=== PATIENT | male | born 1995 | race Caucasian/White ===

== ENCOUNTER 2022-08-03 16:30 | Emergency (ER) | payer SELFPAY ==
[2022-08-03 16:45] VITALS: BP 149/81; PULSE 94; RESP 16; TEMP 38; O2SAT 99
--- NOTE | 2022-08-03 17:59 | ED.GENADULT ---
HPI - General Adult General Chief complaint: Upper Respiratory Infection Stated complaint: cough,sinus pressure, high temp Source: patient Mode of arrival: ambulatory Limitations: no limitations History of Present Illness HPI narrative: PATIENT PRESENTS FOR EVALUATION OF SICK SYMPTOMS FOR LAST WEEK. SYMPTOMS INCLUDE COUGH AND HEADACHE. HE DEVELOPED OF FEVER EARLIER TODAY WHICH PROMPTED HIM TO COME IN HERE TODAY. HE HAS HAD SOME MILD SHORTNESS OF BREATH OCCASIONALLY BUT NOTHING SIGNIFICANT. HE DENIES ANY NAUSEA OR VOMITING. HE DID HAVE SOME DIARRHEA. HIS GIRLFRIEND AND CHILD HAS SIMILAR SYMPTOMS. HE STATES HE IS NOT SURE WHETHER THEY RECEIVED A FORMAL MEDICAL DIAGNOSIS. HE SMOKED MARIJUANA UNTIL THREE WEEKS AGO. HE DOES NOT SMOKE CIGARETTES. HE TOOK MUCINEX BUT IS UNSURE WHETHER THAT MADE A CONSIDERABLE DIFFERENCE IN HIS SYMPTOMS. NO ADDITIONAL COMPLAINTS OR CONCERNS. Related Data Allergies Allergy/AdvReac Type Severity Reaction Status Date / Time No Known Allergies Allergy Unverified 06/26/16 04:03 Review of Systems Review of Systems: CONSTITUTIONAL: REPORTS FEVER. DENIES CHILLS, OR SWEATS. EYES: DENIES VISUAL CHANGES, REDNESS, OR DISCHARGE. ENT: DENIES RHINORRHEA, CONGESTION, SORE THROAT, OR OTALGIA. CARDIOVASCULAR: DENIES CHEST PAIN, PALPITATIONS, OR EDEMA. RESPIRATORY: REPORTS COUGH AND MILD SHORTNESS OF BREATH. GASTROINTESTINAL: DENIES ABDOMINAL PAIN, NAUSEA, VOMITING, OR DIARRHEA. GENITOURINARY: DENIES DYSURIA OR HEMATURIA. SKIN: DENIES RASH OR ITCHING. MUSCULOSKELETAL: DENIES BACK PAIN, JOINT PAIN, OR MYALGIA. NEUROLOGIC: REPORTS HEADACHE. DENIES NUMBNESS, DIZZINESS, OR WEAKNESS. PSYCHIATRIC: DENIES ANXIETY OR DEPRESSION. [facility] Past Medical History Medical History No pertinent past medical history Surgical History Surgical History (Updated 08/03/22 @ 18:03 by GRANT Pope, FAHAD) No pertinent past surgical history Family History Family History Mother Family history non-contributory Social History Social History Smoking status: Never smoker Substance use: former Substance use type: marijuana Gender identity (if verbalized by the patient): Male Sexual Orientation (if Verbalized by the Patient): Straight or Heterosexual Spiritual care concerns: No Exam Narrative: GENERAL: APPEARS ACUTELY ILL BUT NONTOXIC. HEAD: NORMOCEPHALIC, ATRAUMATIC. EYES: PERRLA AND EOMI. ENT: NARES CLEAR, NO RHINORRHEA OR EPISTAXIS. MUCOUS MEMBRANES MOIST. OROPHARYNX WITHOUT TONSILLAR HYPERTROPHY EXUDATE OR OTHER LESIONS. BILATERAL TMS PEARLY PLUMMER NONBULGING NECK: SUPPLE. NO ADENOPATHY OR MASSES. NO CAROTID BRUITS OR JVD CHEST: COUGH NOTED ON EXAM. CLEAR TO AUSCULTATION. NO RESPIRATORY DISTRESS. NO WHEEZES RALES OR RHONCHI HEART: REGULAR RATE AND RHYTHM. NO MURMUR HEARD. NORMAL PERIPHERAL PULSES. ABDOMEN: SOFT, NONTENDER, NONDISTENDED, NORMAL ACTIVE BOWEL SOUNDS. EXTREMITIES: NORMAL RANGE OF MOTION. NO EDEMA. SKIN: WARM, DRY, NO RASH. NEURO: NO FOCAL DEFICITS. ALERT AND ORIENTED X3. PSYCH: NORMAL MOOD AND AFFECT. Course Course Emergency Course: THIS IS A 27-YEAR-OLD MALE WHO PRESENTED FOR EVALUATION OF SICK SYMPTOMS. INFLUENZA IS POSITIVE. WILL TREAT WITH TAMIFLU. INCREASE HYDRATION. [id number] AGENTS FOR SYMPTOM MANAGEMENT. FOLLOW UP WITH PRIMARY PROVIDER. INSTRUCTED ON HAND HYGIENE. GO TO THE ER FOR DIFFICULTY BREATHING. PATIENT IN AGREEMENT PLAN OF CARE. Level of Care: Express Care Visit Vital Signs Vital signs: Vital Signs Temperature 38.0 C H 08/03/22 16:45 Pulse Rate 94 08/03/22 16:45 Respiratory Rate 16 08/03/22 16:45 Blood Pressure 149/81 H 08/03/22 16:45 Pulse Oximetry 99 08/03/22 16:45 Oxygen Delivery Room Air 08/03/22 16:45 Temperature 38.0 C H 08/03/22 16:45 P
== END 2022-08-03 18:01 | disposition home or self-care (01) ==
PROVIDERS: Emergency Provider Nurse Practitioner
DX: J10.1 Influenza due to other identified influenza virus with other respiratory manifestations (principal)
CPT/HCPCS: 87804; 99203; G0463

== ENCOUNTER 2025-01-31 19:03 | Emergency (ER) | payer OTHER, SELFPAY ==
--- NOTE | ~2025-01-31 | US_ITS ---
EXAM: ABDOMEN ULTRASOUND HISTORY: RUQ pain+murphys COMPARISON: None FINDINGS: LIVER: The liver is increased in echogenicity and size measuring 20 cm in longitudinal dimension. The portal vein is patent, demonstrating hepatopedal flow. GALLBLADDER: No stones are identified within the gallbladder, which is otherwise unremarkable. No sonographic Cleary sign is elicited. No gallbladder wall thickening or pericholecystic fluid. BILE DUCTS: Common bile duct measures 2.6mm. PANCREAS: Limited evaluation of the pancreas secondary to overlying bowel gas IMPRESSION: Limited evaluation of the pancreas secondary to overlying bowel gas. Fatty infiltration of an enlarged liver. No additional abnormality, as detailed above. Reviewed, dictated and finalized at location A.
--- NOTE | ~2025-01-31 | XR_ITS ---
CHEST RADIOGRAPH CLINICAL HISTORY: right side pain w/ breathing . COMPARISON: None available TECHNIQUE: Single portable view of the chest. FINDINGS The cardiomediastinal silhouette is unremarkable. The lungs are clear. Visualized osseous structures and soft tissues are unremarkable. IMPRESSION: No focal infiltrate or effusion. Reviewed, dictated and finalized at location A.
[2025-01-31 19:14] VITALS: BP 153/87; PULSE 92; RESP 15; TEMP 36.8; O2SAT 97
--- NOTE | 2025-01-31 19:23 | ED.ABDPAIN ---
HPI - Abdominal Pain General Chief Complaint: Abdominal Pain Stated Complaint: right flank pain Time Seen by Provider: 01/31/25 19:15 History of Present Illness HPI narrative: 29-year-old otherwise healthy male presenting to the emergency department with 1 day of right upper quadrant pain worse with deep breathing. Patient states that he did not injure himself for have any recent illnesses. He denies any coughing, sneezing, Raynaud's, nausea, vomiting, diarrhea constipation. Was otherwise in his normal state of health but woke up today with some right upper quadrant pain rating 2-3 in intensity. He states that got progressively worse throughout the day and when he bent over or while he was taking deep breaths it worsened. Still has his gallbladder, no history of gallstones, kidney stones or significant alcohol intake. He was otherwise in his normal state of health. Related Data Allergies Allergy/AdvReac Type Severity Reaction Status Date / Time No Known Allergies Allergy Unverified 01/31/25 19:22 Review of Systems Review of Systems: As reviewed above in HPI [facility] Past Medical History Medical History No pertinent past medical history Surgical History Surgical History No pertinent past surgical history Family History Family History Mother Family history non-contributory Social History Social History Smoking status: Never smoker Substance use: former Substance use type: marijuana Living arrangements: with family Gender identity (if verbalized by the patient): Male Sexual Orientation (if Verbalized by the Patient): Straight or Heterosexual Spiritual care concerns: No Exam Narrative: GENERAL: [Well-appearing, well-nourished, and in no acute distress.] HEAD: [Normocephalic, atraumatic.] EYES: [PERRLA and EOMI.] ENT: Nares clear, no rhinorrhea or epistaxis. Mucous membranes moist. NECK: Supple. CHEST: [Clear to auscultation. No respiratory distress.] HEART: [Regular rate and rhythm]. No murmur heard. [Normal peripheral pulses.] ABDOMEN: [Soft, nondistended], tender to palpation the right upper quadrant with a positive Cleary sign but no overlying skin changes. No CVA tenderness, [No rigidity or guarding] EXTREMITIES: Normal range of motion. [No edema.] SKIN: Warm, dry, no rash. NEURO: [No focal deficits]. Alert and oriented [x3.] PSYCH: [Normal mood and affect.] Course Vital Signs Vital signs: Vital Signs Temperature 36.8 C 01/31/25 19:14 Pulse Rate 92 01/31/25 19:14 Respiratory Rate 15 01/31/25 19:14 Blood Pressure 153/87 H 01/31/25 19:14 Pulse Oximetry 97 01/31/25 19:14 Oxygen Delivery Room Air 01/31/25 19:14 Temperature 36.8 C 01/31/25 19:14 Pulse Rate 95 01/31/25 19:39 Respiratory Rate 15 01/31/25 19:39 Blood Pressure 130/91 H 01/31/25 19:39 Pulse Oximetry 97 01/31/25 19:39 Oxygen Delivery Room Air 01/31/25 19:14 MDM - Abdominal Pain MDM Narrative Medical decision making narrative: 29-year-old male presenting to the emergency department with 1 day of right upper quadrant pain progressively worsened throughout the day. Positive Cleary sign examination but otherwise reassuring exam in the abdomen with no signs of peritonitis, rigidity or guarding. He is afebrile, vital signs show some mild hypertension but no other vital concerns. No urinary pain or dysuria, no nausea, vomiting, diarrhea. No upper respiratory complaints or difficulty in breathing. Differential diagnosis includes musculoskeletal pain, gallstones, gallbladder colic, cholecystitis, choledocholithiasis, pancreatitis, less likely renal pathology or hepatitis. Low suspicion intra-abdominal infection otherwise. Ultrasound of right upper quadrant was ordered as well as CBC, CMP, urinalysis and lipase level. Chest x-ray is ordered to look for potential intrathoracic process such as pneumonia, pleural effusion or pneumothorax less likely. Workup shows a slight leukocytosis of 12.8 but nonspecific. No anemia or platelet concerns. Electrolytes are normal, normal renal and hepatic function panel. Normal lipase. Urinalysis without any signs of infection or blood. Chest x-ray without any infiltrates or effusion. Ultrasound shows fatty liver but no abnormalities such as gallstones, bladder wall thickening, sonographic Cleary sign or any pericholecystic fluid. Patient remains hemodynamically stable given his unremarkable workup can be safely discharged home with close primary care provider follow-up and return precautions. Medical Records Attestation: I reviewed the patient's medical records. Lab Data Attestation: I reviewed the patient's lab results. 01/31/25 19:18 01/31/25 19:18 Labs: Lab Results 01/31/25 01/31/25 Range/Units 19:18 20:44 WBC 12.8 H (4.5-10.0) K/mm3 RBC 5.33 (4.6-6.20) M/mm3 Hgb 15.4 (14.0-18.0) g/dL Hct 46.2 (42.0-52.0) % MCV 86.7 (80-100) fl MCH 28.9 (26-34) pg MCHC 33.3 (32-36) g/dl RDW 12.9 (11.5-14.5) % Plt Count 328 (150-375) k/mm3 MPV 9.8 (7.4-10.4) fl Immature Gran % (Auto) 0.5 (0-0.5) % Neut % (Auto) 67.4 (45.5-73.1) % Lymph % (Auto) 25.1 (18.3-44.2) % [place] % (Auto) 5.6 (2.6-8.5) % Eos % (Auto) 0.6 (0-4.4) % Baso % (Auto) 0.8 (0.2-1.2) % Lymph # (Auto) 3.21 H (0.9-3.2) K/mm3 [place] # (Auto) 0.7 H (0.1-0.6) K/mm3 Eos # (Auto) 0.1 (0-0.3) K/mm3 Baso # (Auto) 0.1 (0.0-0.1) K/mm3 Abs Immat Gran (auto) 0.07 H (0.00-0.031) K/mm3 Absolute Neuts (auto) 8.6 H (1.3-6.7) K/mm3 Absolute Nucleated RBC 0.000 (0.0-0.012) K/mm3 Nucleated RBC % 0.0 (0.0-0.2) % Sodium 141 (137-145) mmol/L Potassium 4.4 (3.4-5.0) mmol/L Chloride 106 (98-107) mmol/L Carbon Dioxide 25 (22-30) mmol/L Anion Gap 10 (4-12) mmol/L BUN 14 (9-20) mg/dL Creatinine 0.85 (0.7-1.3) mg/dL Estim Creat Clear Calc 142 ml/min Estimated GFR > 60 (59 - ) Glucose 82 (65-110) mg/dL Calcium 9.7 (8.4-10.2) mg/dL Total Bilirubin 0.4 (0.2-1.3) mg/dL AST 26 (17-59) U/L ALT 27 (6-50) U/L Alkaline Phosphatase 69 (38-126) U/L Total Protein 8.0 (6.3-8.2) g/dL Albumin 4.8 (3.5-5.1) g/dL Lipase 43 (23-300) U/L Urine Color Yellow (Yellow) Urine Appearance Clear (Clear) Urine pH 6.0 (5.0-9.0) Ur Specific [place] 1.032 (1.001-1.035) Urine Protein Trace (Negative) mg/dL Urine Glucose (UA) Negative (Negative) mg/dL Urine Ketones Trace H (Negative) mg/dL Ur Blood (Man) Negative (Negative) Urine Nitrate Negative (Negative) Urine Bilirubin Negative (Negative) Urine Urobilinogen 1.0 (<2.0) mg/dL Leukocyte Esterase Rfl Negative (Negative) YELITZA/UL Urine RBC 0-2 (0-2) /hpf Urine WBC 0-5 (0-3) /hpf Ur Squamous Epith Cells None seen (Few) /hpf Urine Bacteria None seen /hpf Urine Casts 0-2 Imaging Data Attestation: I personally reviewed and interpreted this imaging study as follows: My impression: Impressions Abdomen Ultrasound 01/31/25 20:31 IMPRESSION: Limited evaluation of the pancreas secondary to overlying bowel gas. Fatty infiltration of an enlarged liver. No additional abnormality, as detailed above. Chest X-Ray 01/31/25 21:22 IMPRESSION: No focal infiltrate or effusion. Radiologist's impression: ITS Impressions Abdomen Ultrasound 01/31/25 20:31 IMPRESSION: Limited evaluation of the pancreas secondary to overlying bowel gas. Fatty infiltration of an enlarged liver. No additional abnormality, as detailed above. Chest X-Ray 01/31/25 21:22 IMPRESSION: No focal infiltrate or effusion. Discharge Plan Discharge Clinical Impression: Fatty infiltration of liver, Colicky right upper quadrant pain Patient Disposition: Home Condition: Stable Instructions: Antibiotic Form, Non-Alcoholic Fatty Liver Disease (ED), Abdominal Pain (ED) Additional Instructions: Your laboratory studies are reassuring, your liver function and kidney function are normal. No signs of urinary issues. Your ultrasound shows a fatty liver and an enlarged liver but no signs of infection or gallstones or any gallbladder disease. Chest x-ray without any findings such as pneumonia or collapsed lung. Unclear the cause of symptoms but it could be related to your liver or simply a pulled muscle in the ribcage. Fatty liver is a usually result of diet and/or alcohol. Follow-up with your regular primary care provider about this, return with any persistent or new concerns. You can still take Tylenol and ibuprofen for any aches or pains. Patient Language: Persian Prescriptions: No Action oseltamivir [Tamiflu] 75 mg capsule 75 mg PO Q12H 5 Days Qty: 10 0RF Follow-up/Referrals: PHYSICIAN,NEUROSURGERY RESEARCH DIRECTOR [Primary Care Provider] - Time of Disposition: 21:40
[2025-01-31 19:28] LABS: Basophils Absolute Auto 0.1 K/mm3 (0.0-0.1); Basophils Percent Auto 0.8 % (0.2-1.2); Eosinophils Absolute Auto 0.1 K/mm3 (0-0.3); Eosinophils Percent Auto 0.6 % (0-4.4); Hematocrit 46.2 % (42.0-52.0); Hemoglobin 15.4 g/dL (14.0-18.0); Immature Granulocyte Absolute 0.07 K/mm3 (0.00-0.031); Immature Granulocyte Percent A 0.5 % (0-0.5); Lymphocytes Absolute Auto 3.21 K/mm3 (0.9-3.2); Lymphocytes Percent Auto 25.1 % (18.3-44.2); Mean Corpuscular HGB Conc 33.3 g/dl (32-36); Mean Corpuscular Hemoglobin 28.9 pg (26-34); Mean Corpuscular Volume 86.7 fl (80-100); Mean Platelet Volume 9.8 fl (7.4-10.4); Monocytes Absolute Auto 0.7 K/mm3 (0.1-0.6); Monocytes Percent Auto 5.6 % (2.6-8.5); Neutrophils Absolute Auto 8.6 K/mm3 (1.3-6.7); Neutrophils Percent Auto 67.4 % (45.5-73.1); Platelet Count Result 328 k/mm3 (150-375); Red Blood Count 5.33 M/mm3 (4.6-6.20); Red Cell Distribution Width 12.9 % (11.5-14.5); White Blood Count 12.8 K/mm3 (4.5-10.0)
[2025-01-31 19:38] LABS: Alanine Aminotransferase 27 U/L (6-50); Albumin Level 4.8 g/dL (3.5-5.1); Alkaline Phosphatase 69 U/L (38-126); Anion Gap 10 mmol/L (4-12); Aspartate Amino Transferase 26 U/L (17-59); Bilirubin,Total 0.4 mg/dL (0.2-1.3); Blood Urea Nitrogen 14 mg/dL (9-20); Calcium 9.7 mg/dL (8.4-10.2); Carbon Dioxide 25 mmol/L (22-30); Chloride 106 mmol/L (98-107); Estimated CRCL calculation 142 ml/min; Estimated Glomerular Filt Rate > 60; Glucose 82 mg/dL (65-110); Lipase 43 U/L (23-300); Potassium 4.4 mmol/L (3.4-5.0); Sodium 141 mmol/L (137-145)
[2025-01-31 19:39] VITALS: BP 130/91; PULSE 95; RESP 15; O2SAT 97
[2025-01-31 20:58] LABS: Add Urine Microscopic? YES; Appearance Urine Clear (Clear); Bacteria Urine None Seen /hpf; Bilirubin Urine Negative (Negative); Blood Urine Negative (Negative); Color Urine Yellow (Yellow); Glucose Urine UA Negative (Negative); Ketones Urine Trace mg/dL (Negative); Leukocyte Esterase Ur Negative LEU/UL (Negative); Nitrate Urine Negative (Negative); Non Pathogenic Casts 0-2; Protein Urine Trace mg/dL (Negative); RBC Urine 0-2 /hpf (0-2); Specific Grav Ur 1.032 (1.001-1.035); Squamous Epithelial Cell Urine None Seen /hpf (Few); WBC Urine 0-5 /hpf (0-3)
== END 2025-01-31 21:49 | disposition home or self-care (01) ==
PROVIDERS: Emergency Provider Student in an Organized Health Care Education/Training Program
DX: K76.0 Fatty (change of) liver, not elsewhere classified (principal); R10.11 Right upper quadrant pain
CPT/HCPCS: 36415; 71045; 76705; 80053; 81001; 83690; 85025; 99284